=== PATIENT | female | born 1980 | race Caucasian/White ===

== ENCOUNTER → 2024-02-14 09:42 | Outpatient (REF) | payer BC, SELFPAY | LOC: WDC 09:42 | PROVIDERS: ATTENDING PHYSICIAN Internal Medicine | DX: N63.0 Unspecified lump in unspecified breast (principal); N63.13 Unspecified lump in the right breast, lower outer quadrant; N63.23 Unspecified lump in the left breast, lower outer quadrant | CPT/HCPCS: 76642; 77062; 77066 ==

== ENCOUNTER → 2024-08-21 12:30 | Outpatient (REF) | payer BC, SELFPAY | LOC: RAD 12:30 | PROVIDERS: ATTENDING PHYSICIAN Internal Medicine | DX: R10.9 Unspecified abdominal pain (principal) | CPT/HCPCS: 74178; Q9967 ==